=== PATIENT | male | born 1960 | race Caucasian/White ===

== ENCOUNTER 2017-12-16 09:39 | Emergency (ER) | payer OTHER ==
[~2017-12-16] VITALS: Ht 177.8 cm; Wt 92.1 kg
[~2017-12-16 09:39] MED LIST: IBUP-1050 PO
[2017-12-16 09:42] VITALS: Ht 177.8 cm; Wt 92.1 kg
[2017-12-16] MEDS ORDERED: HYDROmorphone INJ 1 MG/ML SYR IV STA ×2 (09:54→12:07)
[2017-12-16] MEDS ORDERED: SODIUM CHLORIDE 0.9% 1000ML 1,000 ML IV STA (09:54)
[2017-12-16] MEDS ORDERED: KETOROLAC TROMETHAMINE 30 MG/ML VIAL IV STA (09:54)
[2017-12-16] MEDS ORDERED: ONDANSETRON INJ 2 MG/ML 2 ML VIAL IV STA (09:54)
--- NOTE | 2017-12-16 09:54 | EMERGENCY ROOM VISIT NOTE ---
History Report prepared by Kalpana: Nicky Rosenberg Under the Supervision of: Dr. Royer Smallwood M.D. First contact with patient: 09:44 Chief Complaint: BACK PAIN Stated Complaint: BACK PAIN History of Present Illness The patient is a 57 year old male who presents to the Emergency Room with complaints of persistent worsening left lower back pain that started last night. The patient rates his pain a 10/10 in severity. The pain worsens with movement. He denies a history of kidney stones. He states he feels constipated but knows he is not. He denies rash. He reports he has been taking Ibuprofen for the pain and his last dose was at 3 AM. Source of History: patient Onset: last night Position: back (lower) Symptom Intensity: 10/10 Timing: worsening, other (persistent) Modifying Factors (Worsening): movement Associated Symptoms: No rash Review of Systems See HPI for pertinent positives & negatives. A total of 10 systems reviewed and were otherwise negative. Past Medical & Surgical Medical Problems: (1) Acid reflux Social History Smoking Status: Never Smoker Current/Historical Medications Scheduled Cyclobenzaprine Hcl (Flexeril), 10 MG PO TID Scheduled PRN Oxycodone/Acetaminophen 5MG/325MG (Percocet 5MG/325MG), 1-2 TAB PO Q4H PRN for Pain Allergies Coded Allergies: No Known Allergies (Unverified , 12/16/17) Physical Exam Vital Signs Date Time Temp Pulse Resp B/P (MAP) Pulse Ox O2 Delivery O2 Flow Rate FiO2 12/16/17 12:29 36.8 68 18 147/93 98 12/16/17 11:52 62 20 148/92 97 Room Air 12/16/17 10:49 55 12/16/17 10:21 63 18 176/90 95 Room Air 12/16/17 09:42 36.7 82 16 173/102 100 Room Air Physical Exam GENERAL: Awake, alert, well-appearing, in no acute distress HENT: Normocephalic, atraumatic. Oropharynx unremarkable. EYES: Normal conjunctiva. Sclera non-icteric. NECK: Supple. No nuchal rigidity. FROM. No JVD. RESPIRATORY: Clear to auscultation. CARDIAC: Regular rate, normal rhythm. Extremities warm and well perfused. Pulses equal. ABDOMEN: Soft, non-distended. No tenderness to palpation. No rebound or guarding. No masses. RECTAL: Deferred. MUSCULOSKELETAL: Chest examination reveals no tenderness. The back is symmetrical on inspection without obvious abnormality. There is no CVA tenderness to palpation. No joint edema. Unable to sit up due to spasms. No saddle anesthesia on exam. LOWER EXTREMITIES: Calves are equal size bilaterally and non-tender. No edema. No discoloration. NEURO: Normal sensorium. No sensory or motor deficits noted. SKIN: No rash or jaundice noted. Medical Decision & Procedures ER Provider Diagnostic Interpretation: Radiology results as stated below per my review and radiologist interpretation: CT SCAN OF THE LUMBAR SPINE WITHOUT IV CONTRAST CLINICAL HISTORY: Left flank pain. COMPARISON STUDY: CT scan of the abdomen and pelvis performed concurrently on 12/16/2017. TECHNIQUE: CT scan of the lumbar spine is performed from the lower thoracic spine to the sacrum. Images are reviewed in the axial, sagittal, and coronal planes. IV contrast was not administered for this examination. A dose lowering technique was utilized adhering to the principles of ALARA. CT DOSE: 1086.02 mGy.cm FINDINGS: The skeletal structures are well mineralized. There is no evidence of fracture or malalignment involving the lumbar spine. Vertebral body height and alignment are maintained. The transverse and spinous processes are intact. There is no spondylolysis. Tiny anterior osteophytes are seen in the lower lumbar region. No lytic or blastic lesion is seen. Intervertebral disc spaces are well-maintained. There is no evidence of large disc herniation or central canal stenosis by CT. The visualized sacrum and bony pelvis appear intact. The paraspinous soft tissues are within normal limits. IMPRESSION: No acute bony abnormality is seen involving the lumbar spine. Dictated: 12/16/2017 10:46 AM Transcribed: 12/16/2017 10:58 AM MARC_Maria De Jesus Electronically signed by: Christiano Dupont M.D. 12/16/2017 10:59 AM Dictated Date/Time: 12/16/2017 10:[address] SCAN OF THE ABDOMEN AND PELVIS WITHOUT IV CONTRAST CLINICAL HISTORY: Left flank pain. COMPARISON STUDY: No priors. TECHNIQUE: CT scan of the abdomen and pelvis is performed from the lung bases to the proximal femora. Images are reviewed in the axial, sagittal, and coronal planes. IV contrast was not administered for this examination as per the referring clinician. A dose lowering technique was utilized adhering to the principles of ALARA. FINDINGS: Lung bases: The heart is normal in size and without pericardial effusion. The lung bases are clear noting dependent atelectasis. Liver: The unenhanced liver is normal in size, contour, and attenuation. There is no intrahepatic biliary ductal dilatation. Gallbladder: Unremarkable. Spleen: Normal in size and attenuation. Pancreas: Unremarkable. Adrenal glands: Unremarkable. Kidneys: The unenhanced kidneys are normal in size and without hydronephrosis. There are no renal calculi identified. A 2.2 cm cyst is noted in the left upper pole. Abdominal vasculature: The abdominal aorta is normal in course and caliber noting scattered foci of atherosclerotic calcification. Bowel: There is mild/moderate colonic fecal retention. No bowel obstruction is seen. The appendix is well-visualized and normal. Peritoneum: There is no intraperitoneal free air or abdominal ascites. There is a fat-containing umbilical hernia. Lymphadenopathy: None. Pelvic viscera: The bladder, prostate, and seminal vesicles are normal as visualized. A small fat-containing inguinal hernia is noted on the right. Surgical clips are noted along the spermatic cord bilaterally. Skeletal structures: No lytic or blastic lesions are seen. IMPRESSION: There are no acute infectious or inflammatory findings in the abdomen or pelvis. Electronically signed by: Christiano Dupont M.D. 12/16/2017 10:46 AM Dictated Date/Time: 12/16/2017 10:42 AM Laboratory Results 12/16/17 10:15 Red Blood Count 5.04, Mean Corpuscular Volume 88.5, Mean Corpuscular Hemoglobin 31.5, Mean Corpuscular Hemoglobin Concent 35.7, Mean Platelet Volume 11.3, Neutrophils (%) (Auto) 77.1, Lymphocytes (%) (Auto) 15.0, Monocytes (%) (Auto) 6.6, Eosinophils (%) (Auto) 1.1, Basophils (%) (Auto) 0.1, Neutrophils # (Auto) 5.47, Lymphocytes # (Auto) 1.07, Monocytes # (Auto) 0.47, Eosinophils # (Auto) 0.08, Basophils # (Auto) 0.01 12/16/17 10:15 Test 12/16/17 10:15 12/16/17 10:52 White Blood Count 7.11 K/uL (4.8-10.8) Red Blood Count 5.04 M/uL (4.7-6.1) Hemoglobin 15.9 g/dL (14.0-18.0) Hematocrit 44.6 % (42-52) Mean Corpuscular Volume 88.5 fL (80-100) Mean Corpuscular Hemoglobin 31.5 pg (25-34) Mean Corpuscular Hemoglobin Concent 35.7 g/dl (32-36) Platelet Count 167 K/uL (130-400) Mean Platelet Volume 11.3 fL (7.4-10.4) Neutrophils (%) (Auto) 77.1 % Lymphocytes (%) (Auto) 15.0 % Monocytes (%) (Auto) 6.6 % Eosinophils (%) (Auto) 1.1 % Basophils (%) (Auto) 0.1 % Neutrophils # (Auto) 5.47 K/uL (1.4-6.5) Lymphocytes # (Auto) 1.07 K/uL (1.2-3.4) Monocytes # (Auto) 0.47 K/uL (0.11-0.59) Eosinophils # (Auto) 0.08 K/uL (0-0.5) Basophils # (Auto) 0.01 K/uL (0-0.2) RDW Standard Deviation 41.7 fL (36.4-46.3) RDW Coefficient of Variation 12.9 % (11.5-14.5) Immature Granulocyte % (Auto) 0.1 % Immature Granulocyte # (Auto) 0.01 K/uL (0.00-0.02) Anion Gap 6.0 mmol/L (3-11) Est Creatinine Clear Calc Drug Dose 71.6 ml/min Estimated GFR () 69.3 Estimated GFR (Non- 59.8 BUN/Creatinine Ratio 12.8 (10-20) Calcium Level 8.8 mg/dl (8.5-10.1) Total Bilirubin 0.7 mg/dl (0.2-1) Direct Bilirubin 0.1 mg/dl (0-0.2) Aspartate Amino Transf (AST/SGOT) 19 U/L (15-37) Alanine Aminotransferase (ALT/SGPT) 49 U/L (12-78) Alkaline Phosphatase 63 U/L (45-117) Total Creatine Kinase 147 U/L (39-308) Total Protein 8.2 gm/dl (6.4-8.2) Albumin 4.2 gm/dl (3.4-5.0) Lipase 169 U/L (73-393) Urine Color YELLOW Urine Appearance CLEAR (CLEAR) Urine pH 8.0 (4.5-7.5) Urine Specific [place] 1.028 (1.000-1.030) Urine Protein NEG (NEG) Urine Glucose (UA) NEG (NEG) Urine Ketones TRACE (NEG) Urine Occult Blood NEG (NEG) Urine Nitrite NEG (NEG) Urine Bilirubin NEG (NEG) Urine Urobilinogen NEG (NEG) Urine Leukocyte Esterase NEG (NEG) Urine WBC (Auto) 0 /hpf (0-5) Urine RBC (Auto) 0-4 /hpf (0-4) Urine Hyaline Casts (Auto) 1-5 /lpf (0-5) Urine Epithelial Cells (Auto) 5-10 /lpf (0-5) Urine Bacteria (Auto) NEG (NEG) Labs reviewed by ED physician. Medications Administered Medications (Trade) Dose Ordered Sig/Jay Route Start Time Stop Time Status Last Admin Dose Admin Hydromorphone HCl (Dilaudid Inj) 1 mg NOW STAT IV 12/16/17 09:54 12/16/17 09:57 DC 12/16/17 10:21 1 MG Ketorolac Tromethamine (Toradol Inj) 30 mg NOW STAT IV 12/16/17 09:54 12/16/17 09:57 DC 12/16/17 10:22 30 MG Ondansetron HCl (Zofran Inj) 4 mg NOW STAT IV 12/16/17 09:54 12/16/17 09:57 DC 12/16/17 10:22 4 MG Sodium Chloride 1,000 ml @ 999 mls/hr Q1H1M STAT IV 12/16/17 09:54 12/16/17 10:54 DC 12/16/17 10:21 999 MLS/HR Hydromorphone HCl (Dilaudid Inj) 1 mg NOW STAT IV 12/16/17 12:07 12/16/17 12:09 DC 12/16/17 12:23 1 MG Lidocaine (Lidoderm Patch 5%) 1 patch NOW STAT TD 12/16/17 12:07 12/16/17 12:09 DC 12/16/17 12:24 1 PATCH Cyclobenzaprine HCl (Flexeril Tab) 5 mg NOW STAT PO 12/16/17 12:07 12/16/17 12:09 DC 12/16/17 12:23 5 MG ED Course 0946: Past medical records reviewed. The patient was evaluated in room B8. A complete history and physical examination was performed. 1210: Upon reexamination the patient is resting comfortably. I discussed results and treatment plan with the patient. He verbalizes agreement and understanding. The patient is ready for discharge. Medical Decision Differential diagnosis: Etiologies such as musculoskeletal, disc herniation, fracture, aortic disease, metastatic disease, cord compression, discitis, infection, renal colic, gastrointestinal, acute exacerbation of chronic back pain, sciatica, cauda equina, as well as others were entertained. This is a 57-year-old male who presents emergency department complaining of back and flank pain. Patient was sent for CAT scan of the lumbar spine as well as a CT for stones. The patient does admit to white water rafting 2 days ago and I suspect that this is the cause of his back pain. Regardless he has a normal CK, is able to walk on his tiptoes as well as his heels has no evidence of saddle anesthesia. He was given Dilaudid as well as Toradol for his pain. Repeat examination revealed much improvement the patient's symptoms. Based on these findings I feel the patient can be safely discharged home for follow-up with orthopedics. Patient and are in agreement with the treatment plan. Medication Reconcilliation Current Medication List: was personally reviewed by me Blood Pressure Screening Patient's blood pressure: Elevated blood pressure Blood pressure disposition: Elevated BP felt to be situational Impression Primary Impression: Back pain Scribe Attestation The scribe's documentation has been prepared under my direction and personally reviewed by me in its entirety. I confirm that the note above accurately reflects all work, treatment, procedures, and medical decision making performed by me. Departure Information Dispostion Home / Self-Care Prescriptions Oxycodone/Acetaminophen 5MG/325MG (PERCOCET 5MG/325MG) Tab 1-2 TAB PO Q4H Y for Pain, #14 TAB Prov: Royer Smallwood MD 12/16/17 Cyclobenzaprine Hcl (FLEXERIL) 10 Mg Tab 10 MG PO TID, #21 TAB Prov: Royer Smallwood MD 12/16/17 Referrals RV. Cooper MD (PCP) Patient Instructions My [facility] Additional Instructions You received narcotic or benzodiazepene medication while in the emergency room today. This is an addictive medication that may cause drowziness as well as constipation. Do not drive, operate heavy machinery, or drink alcohol under the influence of this medication. Take 600 mg Ibuprofen every 6 hours or Aleve as directed Take Flexeril as directed Take Percocet for breakthrough pain You have been examined and treated today on an emergency basis only. This is not a substitute for, or an effort to provide, complete comprehensive medical care. It is impossible to recognize and treat all injuries or illnesses in a single emergency department visit. It is therefore important that you follow up closely with Dr Leigh. Call as soon as possible for an appointment. Thank you for your time and consideration. I look forward to speaking with you again soon. Please don't hesitate to call us if you have any questions. Problem Qualifiers Primary Impression: Back pain Back pain location: low back pain Chronicity: acute Back pain laterality: midline Sciatica presence: without sciatica Qualified Codes: M54.5 - Low back pain
[2017-12-16 10:27] LABS: BASO % 0.1 %; BASO ABS # 0.01 K/uL (0-0.2); EOS % 1.1 %; EOS ABS # 0.08 K/uL (0-0.5); HEMATOCRIT 44.6 % (42-52); HEMOGLOBIN 15.9 g/dL (14.0-18.0); IG# 0.01 K/uL (0.00-0.02); LYMPH ABS # 1.07 K/uL (1.2-3.4); MEAN CELL VOLUME 88.5 fL (80-100); MEAN CORPUSCULAR HEMOGLOBIN 31.5 pg (25-34); MEAN CORPUSCULAR HGB CONC 35.7 g/dl (32-36); MEAN PLATELET VOLUME 11.3 fL (7.4-10.4); MONO % 6.6 %; MONO ABS # 0.47 K/uL (0.11-0.59); NEUT % 77.1 %; NEUT ABS # 5.47 K/uL (1.4-6.5); PLATELET COUNT 167 K/uL (130-400); RED CELL DISTRIBUTION WIDTH CV 12.9 % (11.5-14.5); RED CELL DISTRIBUTION WIDTH SD 41.7 fL (36.4-46.3); WHITE BLOOD COUNT 7.11 K/uL (4.8-10.8)
[2017-12-16 10:47] LABS: ALBUMIN 4.2 gm/dl (3.4-5.0); CALCIUM 8.8 mg/dl (8.5-10.1); CREATININE 1.33 mg/dl (0.60-1.40); TOTAL PROTEIN 8.2 gm/dl (6.4-8.2)
--- NOTE | 2017-12-16 10:47 | DIAGNOSTIC IMAGING REPORT ---
CT SCAN OF THE ABDOMEN AND PELVIS WITHOUT IV CONTRAST CLINICAL HISTORY: Left flank pain. COMPARISON STUDY: No priors. TECHNIQUE: CT scan of the abdomen and pelvis is performed from the lung bases to the proximal femora. Images are reviewed in the axial, sagittal, and coronal planes. IV contrast was not administered for this examination as per the referring clinician. A dose lowering technique was utilized adhering to the principles of ALARA. FINDINGS: Lung bases: The heart is normal in size and without pericardial effusion. The lung bases are clear noting dependent atelectasis. Liver: The unenhanced liver is normal in size, contour, and attenuation. There is no intrahepatic biliary ductal dilatation. Gallbladder: Unremarkable. Spleen: Normal in size and attenuation. Pancreas: Unremarkable. Adrenal glands: Unremarkable. Kidneys: The unenhanced kidneys are normal in size and without hydronephrosis. There are no renal calculi identified. A 2.2 cm cyst is noted in the left upper pole. Abdominal vasculature: The abdominal aorta is normal in course and caliber noting scattered foci of atherosclerotic calcification. Bowel: There is mild/moderate colonic fecal retention. No bowel obstruction is seen. The appendix is well-visualized and normal. Peritoneum: There is no intraperitoneal free air or abdominal ascites. There is a fat-containing umbilical hernia. Lymphadenopathy: None. Pelvic viscera: The bladder, prostate, and seminal vesicles are normal as visualized. A small fat-containing inguinal hernia is noted on the right. Surgical clips are noted along the spermatic cord bilaterally. Skeletal structures: No lytic or blastic lesions are seen. IMPRESSION: There are no acute infectious or inflammatory findings in the abdomen or pelvis. Electronically signed by: Christiano Dupont M.D. 12/16/2017 10:46 AM Dictated Date/Time: 12/16/2017 10:42 AM
--- NOTE | 2017-12-16 10:58 | DIAGNOSTIC IMAGING REPORT ---
CT SCAN OF THE LUMBAR SPINE WITHOUT IV CONTRAST CLINICAL HISTORY: Left flank pain. COMPARISON STUDY: CT scan of the abdomen and pelvis performed concurrently on 12/16/2017. TECHNIQUE: CT scan of the lumbar spine is performed from the lower thoracic spine to the sacrum. Images are reviewed in the axial, sagittal, and coronal planes. IV contrast was not administered for this examination. A dose lowering technique was utilized adhering to the principles of ALARA. CT DOSE: 1086.02 mGy.cm FINDINGS: The skeletal structures are well mineralized. There is no evidence of fracture or malalignment involving the lumbar spine. Vertebral body height and alignment are maintained. The transverse and spinous processes are intact. There is no spondylolysis. Tiny anterior osteophytes are seen in the lower lumbar region. No lytic or blastic lesion is seen. Intervertebral disc spaces are well-maintained. There is no evidence of large disc herniation or central canal stenosis by CT. The visualized sacrum and bony pelvis appear intact. The paraspinous soft tissues are within normal limits. IMPRESSION: No acute bony abnormality is seen involving the lumbar spine. Dictated: 12/16/2017 10:46 AM Transcribed: 12/16/2017 10:58 AM MARC_Maria De Jesus Electronically signed by: Christiano Dupont M.D. 12/16/2017 10:59 AM Dictated Date/Time: 12/16/2017 10:46 AM
[2017-12-16] MEDS ORDERED: CYCLOBENZAPRINE HCL 5 MG TAB PO STA (12:07)
[2017-12-16] MEDS ORDERED: LIDODERM (LIDOCAINE) PATCH 5% TD STA (12:07)
[2017-12-16] MEDS ORDERED: CYCL10TA6 PO (12:13)
[2017-12-16] MEDS ORDERED: OXYC-57 PO (12:13)
[2017-12-16 12:29] VITALS: BP 147/93; PULSE 68; TEMP 36.8; O2SAT 98
== END 2017-12-16 12:40 | disposition home or self-care (01) ==
LOC: EDBD 09:39 → C.EDB 09:40
DX: M54.5 Low back pain (principal); R03.0 Elevated blood-pressure reading, without diagnosis of hypertension